=== PATIENT | female | born 1975 | race Hispanic/Latino ===

== ENCOUNTER 2019-04-09 07:41 | Observation (INO) | payer OTHER ==
[2019-04-08 14:08] LABS: BASOPHILS % (AUTO) 0.4 % (0.0-5.0); EOSINOPHILS % (AUTO) 1.8 % (0.0-8.0); HEMATOCRIT 41.2 % (36-48); MEAN CORPUSCULAR HEMOGLOBIN 28.6 pg (27.0-33.0); MEAN CORPUSCULAR HGB CONC 31.8 g/dL (32.0-36.0); MONOCYTES % (AUTO) 5.6 % (3.0-13.0); NEUTROPHILS % (AUTO) 55.9 % (40.0-77.0); PLATELET COUNT (AUTO) 231 K/uL (130-400); RED BLOOD CELL COUNT(AUTO) 4.58 MIL/uL (4.00-5.50); RED CELL DISTRIBUTION WIDTH 12.6 % (11.0-15.5); WHITE BLOOD COUNT (AUTO) 7.9 K/uL (4.8-10.8)
[2019-04-08 14:13] VITALS: BP 142/84
[2019-04-09] VITALS (21 sets, daily range): BP systolic 116–146; BP diastolic 62–86
[~2019-04-09] VITALS: Ht 167.6 cm; Wt 94.5 kg
[2019-04-09] MEDS: CEFAZOLIN SODIUM 1 GM VIAL IVP SCH ×2 (06:00→11:00)
[2019-04-09] MEDS: CALDOLOR 800MG+NS 250ML 250 ML IV SCH ×3 (06:00→22:14)
[~2019-04-09 07:41] MED LIST: ATOR10TA69 PO; BUPR100T6 PO; ESCI20TA36 PO; LACTATED RINGERS 1000ML 1,000 ML IV SCH; LORA0.5T83 PO
--- NOTE | 2019-04-09 08:25 | NUR ---
SX TEDS/SCD TO BLE
[2019-04-09] MEDS ORDERED: KETAMINE 50MG/ML SYRINGE 50 MG/ML DISP.SYRIN IV ONE (10:33)
[2019-04-09] MEDS ORDERED: MAGNESIUM SULFATE 1 GM/2 ML VIAL ONE (10:34)
[2019-04-09] MEDS ORDERED: MIDAZOLAM HCL 1 MG/ML 2ML VIAL ONE (10:37)
[2019-04-09] MEDS ORDERED: ROCURONIUM 10MG/1ML SYR 10 MG/ML ML ONE ×2 (10:39→12:03)
[2019-04-09] MEDS ORDERED: PROPOFOL 10 MG/ML 20ML VIAL IV ONE ×2 (10:43→13:19)
[2019-04-09] MEDS ORDERED: GLYCOPYRROLATE 1 MG/5 ML SYRINGE ONE (11:41)
[2019-04-09] MEDS ORDERED: NEOSTIGMINE 5MG/5ML SYR IV ONE (11:41)
[2019-04-09] MEDS ORDERED: DEXAMETHASONE SOD PHOSPHATE 10MG/ML 1ML VIAL ONE (11:41)
[2019-04-09] MEDS ORDERED: BUPIVACAINE/PF 0.25% 30ML VIAL IJ ONE (11:47)
[2019-04-09] MEDS ORDERED: LIDOCAINE 1%-EPI 1:100,000 20 ML VIAL IJ ONE (11:47)
[2019-04-09] MEDS ORDERED: PHENYLEPHRINE HCL 10 MG/ML 1ML VIAL IV ONE (13:13)
[2019-04-09] MEDS ORDERED: MEPERIDINE-PF 25 MG/ML SYG ONE ×4 (13:19→14:22)
--- NOTE | 2019-04-09 13:35 | NUR ---
PT TO PACU ON KETAMINE DRIP, MANAGED BY FAUSTO MOONEY. KETAMINE DRIP 3MG/HR. Addendum: 04/09/19 at 1401 by JOY ZAMORANO RN RN Amended: Links added.
[2019-04-09] MEDS ORDERED: DEXTROSE 5 %-0.45 % NACL 1,000 ML IV PRN (13:57)
[2019-04-09] MEDS ORDERED: MEPERIDINE-PF 75 MG/ML SYG IM PRN (14:00)
[2019-04-09] MEDS ORDERED: ACETAMINOPHEN-CODEINE 300/30MG TAB PO PRN (14:00)
[2019-04-09] MEDS ORDERED: IBUPROFEN 600 MG TABLET PO PRN (14:00)
[2019-04-09] MEDS ORDERED: PROMETHAZINE HCL 25 MG/ML 1ML AMPULE IM PRN ×2 (14:00)
[2019-04-09] MEDS ORDERED: BISACODYL 10 MG SUPP.RECT RC PRN (14:00)
--- NOTE | 2019-04-09 14:10 | NUR ---
HUSAM Beckford ORDERED BY FAUSTO MOONEY. Addendum: 04/09/19 at 1415 by JOY ZAMORANO RN RN Amended: Links added.
--- NOTE | 2019-04-09 15:15 | NUR ---
REPORT RECEIVED FROM CELESTINO, CERTIFIED LACTATION COUNSELOR AND PATIENT CARE TRANSFERED AT THIS TIME. PATIENT DENIES PAIN AND WAS ORIENTED TO UNIT.
[2019-04-09] MEDS ORDERED: NALOXONE HCL 0.4 MG/1 ML ML IVP PRN ×3 (18:00)
[2019-04-09] MEDS ORDERED: EPHEDRINE SULFATE 50 MG/ML AMPULE IVP PRN (18:00)
[2019-04-09] MEDS ORDERED: DiphenhydrAMINE HCL 50 MG/ML VIAL IVP PRN (18:00)
[2019-04-09] MEDS ORDERED: ONDANSETRON HCL 4 MG/2 ML VIAL IVP PRN (18:00)
--- NOTE | 2019-04-09 19:20 | NUR ---
BEDSIDE REPORT GIVEN TO THOM BARRON AND PATIENT DENIES ANY PROBLEMS AT THIS TIME. PIV IS PATENT AND LR RUNNING AT 125CC/HR.
[2019-04-09] MEDS: SIMETHICONE 80 MG TAB.CHEW PO PRN (22:15)
[2019-04-09] MEDS: DOCUSATE SODIUM 100 MG CAP PO PRN (22:15)
[2019-04-10 04:00] VITALS: BP 114/60
[2019-04-10] MEDS ORDERED: LACTATED RINGERS 1000ML 1,000 ML IV SCH (04:45)
[2019-04-10] MEDS: CALDOLOR 800MG+NS 250ML 250 ML IV SCH (06:25)
[2019-04-10 06:47] LABS: HEMATOCRIT 34.8 % (36-48); MEAN CORPUSCULAR HEMOGLOBIN 29.4 pg (27.0-33.0); MEAN CORPUSCULAR HGB CONC 32.5 g/dL (32.0-36.0); MEAN CORPUSCULAR VOLUME 90.6 fL (79-99); PLATELET COUNT (AUTO) 223 K/uL (130-400); RED BLOOD CELL COUNT(AUTO) 3.84 MIL/uL (4.00-5.50); RED CELL DISTRIBUTION WIDTH 12.7 % (11.0-15.5); WHITE BLOOD COUNT (AUTO) 16.1 K/uL (4.8-10.8)
[2019-04-10 07:16] VITALS: BP 127/71
[2019-04-10] MEDS: DOCUSATE SODIUM 100 MG CAP PO PRN (08:43)
[2019-04-10] MEDS: SIMETHICONE 80 MG TAB.CHEW PO PRN (08:43)
--- NOTE | 2019-04-10 10:10 | NUR ---
PHYSICIAN ROUNDING DR. COLE WREN AT BEDSIDE TO ASSESS AND TALK TO PT. NEW ORDERS RECEIVED FOR DISCHARGE.
[2019-04-10 11:47] VITALS: BP 129/75
[2019-04-10] MEDS ORDERED: ESTRADIOL 0.1 MG/24 HR PATCH (WEEKLY) TD SCH (12:45)
[2019-04-10] MEDS ORDERED: IBUPROFEN 800 MG TAB PO SCH (14:00)
--- NOTE | 2019-04-10 14:00 | NUR ---
DISCHARGE PT LEFT UNIT VIA WHEELCHAIR, ACCOMPANIED BY FAMILY. DENIED PAIN AND HAD NO COMPLAINTS. TRANSPORTED BY PERSONAL VEHICLE.
[2019-04-16] MEDS ORDERED: ESTRADIOL 0.1 MG/24 HR PATCH (WEEKLY) TD SCH (09:00)
== END 2019-04-10 14:00 | disposition home or self-care (01) ==
LOC: DAH 07:41 → WSH 07:42 → INTOOBSV 07:42 → WSH 15:05
PROC: 0UT24ZZ Resection of Bilateral Ovaries, Percutaneous Endoscopic Approach (ICD-10-PCS; 2019-04-09)
PROC: 0UB74ZZ Excision of Bilateral Fallopian Tubes, Percutaneous Endoscopic Approach (ICD-10-PCS; principal; 2019-04-09 10:50)
PROC: 0UT74ZZ Resection of Bilateral Fallopian Tubes, Percutaneous Endoscopic Approach (ICD-10-PCS; 2019-04-09 10:50)
DX: N92.5 Other specified irregular menstruation (principal); N94.3 Premenstrual tension syndrome; N94.6 Dysmenorrhea, unspecified
CPT/HCPCS: 36415 ×2; 58661; 84703; 85025; 85027; 86850; 86900; 86901; 88307; 96365; 96366 ×3; 96374; 96376; A4213; A4215 ×3; A4221; A4222; A4223; A4344; A4351; A4510; A4600; A4663; A6260; C1769 ×2; G0168; G0378 ×30; J0690; J1100; J1741 ×4; J2175 ×4; J2250; J2370; J2704 ×2; J2710; J3475; J3490 ×3; J7120 ×3; 96361